=== PATIENT | female | born 1995 | race Caucasian/White ===

== ENCOUNTER 2022-01-16 12:37 | Outpatient (REF) | payer OTHER, SELFPAY ==
[2022-01-16 13:27] LABS: Hematocrit 35.8 % (37.0-47.0); Hemoglobin 11.1 g/dl (12.0-16.0); Mean Corpuscular Hemoglobin 24.1 pg (27.0-33.0); Mean Corpuscular Volume 77.8 fL (80.0-98.0); Mean Platelet Volume 10.4 fL (9.4-12.3); Platelet Count 316 X10*3/uL (160-400); Red Cell Distribution Width 15.5 % (11.0-16.0); White Blood Count 7.8 X10*3/uL (4.8-10.8)
[2022-01-16 13:34] LABS: Estimated Average Glucose 105 mg/dL; Hemoglobin A1c % 5.3 %
[2022-01-16 13:58] LABS: Appearance Urine CLEAR; Color Urine YELLOW; Glucose Urine UA NEG (NEG); Leukocyte Esterase Urine NEG (NEG); Nitrite Urine NEG (NEG); Specific Gravity - Urine >= 1.030 (1.005-1.025); UACC Culture Trigger NO; Urine Blood 2+ (NEG); Urine Ketones NEG (NEG); Urine Protein NEG (NEG-TRACE)
[2022-01-16 14:14] LABS: TSH reflex Free T4 1.54 uIU/mL (0.32-4.0)
[2022-01-16 14:24] LABS: Squamous Epithelial Cell Urine TRACE /LPF; WBC Urine 0 /HPF (0-4)
[2022-01-16 14:51] LABS: Alanine Aminotransferase 17 U/L (0-31); Albumin Level 3.8 g/dL (3.5-5.0); Alkaline Phosphatase 66 U/L (39-117); Anion Gap 11 (12-20); Aspartate Amino Transferase 17 U/L (5-31); Bilirubin Total 0.5 mg/dL (0.0-1.0); Blood Urea Nitrogen 11 mg/dL (9-16); Calcium 9.2 mg/dL (8.4-10.2); Carbon Dioxide 26 mmol/L (22-29); Chloride 107 mmol/L (96-108); Cholesterol 204 mg/dL; Estimated Glomerular Filt Rate > 60; Glucose Fasting 85 mg/dL (60-99); HDL Cholesterol 40 mg/dL; LDL Cholesterol Calculated 144 mg/dl; Potassium 4.7 mmol/L (3.3-5.1); Sodium 139 mmol/L (135-145); Triglycerides 101 mg/dL
== END 2022-01-16 12:38 | disposition home or self-care (01) ==
LOC: HO.LAB 12:37
PROVIDERS: PCP Physician Assistant; Visit Provider Physician Assistant
DX: Z13.220 Encounter for screening for lipoid disorders (principal); Z13.1 Encounter for screening for diabetes mellitus; E66.01 Morbid (severe) obesity due to excess calories; Z68.41 Body mass index [BMI] 40.0-44.9, adult
CPT/HCPCS: 36415; 80053; 80061; 81001; 81003; 83036; 84443; 85027

== ENCOUNTER 2022-10-24 08:57 | Outpatient (RCR) | payer OTHER, BC, SELFPAY ==
--- NOTE | 2022-10-24 09:59 | MHC.PT.EP ---
[facility] [place] Office [place] Office [place] Office [address] Nita Cano [address] [phone] F: [phone] F: [phone] F: [phone] F: [phone] Physical Therapy Plan of Care Date of Evaluation: Date of Surgery: Diagnosis: strain of muscle and tendon of back wall of thorax (RC) Assessment: pt is a 26 y/o female presenting to physical therapy w/ referring diagnosis of S29.012A strain of muscle and tendon of back wall of thorax. Impairments include pain, decreased range of motion, decreased strength, impaired functional mobility, impaired postural awareness, and altered ambulation mechanics. pt is a good candidate for skilled PT due to age, potential remediation of impairments, typical disease/condition progression and prognosis, comorbidities, and motivation. pt would benefit from skilled PT intervention to provide a tailored strengthening and stretching exercise program, functional training, gait training, postural re-training, neuromuscular re-education, modalities as needed for pain, equipment safety demonstration. Frequency and Duration: The patient will be seen 2x/wk for 4 wks Short Term Goals: pt will be I w/ HEP to promote self-management of condition. pt will demo proper sitting posture w/ lumbar roll to promote neutral spine w/ seated ADLs. Loan Funder Goals: pt will report a statistically significant improvement in self-reported outcome measure, Celine, to promote return to PLOF. pt will improve lumbar flexion and extension to at least 90% to promote ease in lifting at work. Treatment Plan: Modalities to reduce pain, spasms and effusion. Manual therapy to restore motion and function. Therapeutic exercise to improve strength and flexibility. Neuromuscular re-education for posture and balance. Therapeutic activities to return to functional activities of daily living. Electronically signed by: Zully Coombs PT, DPT Please sign and return to therapist. Thank you for your referral.
--- NOTE | 2022-11-14 09:25 | MHC.PT.DC ---
[facility] [place] Office [place] Office [place] Office [address] Nita Cano 140 [facility] [phone] F: [phone] F: [phone] F: [phone] F: [phone] Physical Therapy Discharge Report Diagnosis: strain of muscle and tendon of back wall of thorax (RC) Date of Surgery: Date of Evaluation: 10/24/22 Date of Discharge: 11/14/22 Treatments to Date: 1 Cancellations to Date: 1 No Shows to Date: 2 Discharge Status: Discharge Summary: The patient was evaluated and then has no showed two consecutive appointments. Per [facility] Core Therapy policy she is being discharged for non-compliance. Electronically signed by: Zully Coombs PT, DPT Please sign and return to therapist. Thank you for your referral.
== END 2022-11-14 09:26 | disposition home or self-care (01) ==
LOC: HO.PT 08:57
PROVIDERS: PCP Physician Assistant; Visit Provider Nurse Practitioner Family
DX: S29.012D Strain of muscle and tendon of back wall of thorax, subsequent encounter (principal)
CPT/HCPCS: 97110; 97161

== ENCOUNTER 2023-01-09 13:19 | Outpatient (REF) | payer BC, SELFPAY ==
--- NOTE | ~2023-01-09 | MR_ITS ---
EXAMINATION: MR ABDOMEN WITHOUT AND WITH CONTRAST CLINICAL INFORMATION: Further evaluation of splenic abnormality noted within an outside CT from 09/10/2022. COMPARISON: CT abdomen/pelvis outside facility 09/10/2022. TECHNIQUE: MR abdomen was performed without and with use of 10 mL intravenous Gadavist gadolinium contrast. Postcontrast images are performed in multiphase dynamic sequences. Imaging was performed in 3 planes. FINDINGS: LUNG BASES: The visualized lung bases are unremarkable. LIVER, GALLBLADDER, AND BILIARY TREE: There is signal loss in the out of phase dual-echo images most suggestive of hepatic steatosis. Otherwise, the liver is normal in size and shape. No discrete focal liver lesion. Normal appearance of the gallbladder. No biliary ductal dilatation. PANCREAS: Unremarkable. SPLEEN: The spleen measures 11.5 cm craniocaudally and 10.6 cm anterior to posterior. Subtle heterogeneous attenuation of the splenic parenchyma on T2 images as well as early postcontrast images, less prominent and much more subtle than when compared to CT from 09/10/2022, becoming homogeneous on later phases of contrast. ADRENAL GLANDS: Normal. KIDNEYS AND URETERS: The kidneys are normal in size, shape, and enhance symmetrically. No hydronephrosis. No perinephric stranding. GASTROINTESTINAL TRACT: No bowel obstruction. No ascites or fluid collection. ABDOMINAL WALL: No significant hernia is appreciated. LYMPH NODES: No lymphadenopathy. VASCULAR: Unremarkable. OSSEOUS STRUCTURES: No acute or aggressive-appearing osseous abnormalities. MR/MR abdomen wo/w con IMPRESSION: Subtle heterogeneity of the splenic parenchyma on precontrast T2 images as well as arterial postcontrast images, becoming homogeneous on later phases of contrast. No discrete abnormality on T1 precontrast images. Compared to CT from 09/10/2022 these changes are less prominent and much less conspicuous. Constellation of findings are in favor to represent physiologic perfusional abnormalities, combination of red/white pulp attenuation. These could be safely follow-up in 6-12 months to ensure stability/resolution.
== END 2023-01-09 13:20 | disposition home or self-care (01) ==
LOC: HO.MRI 13:19
PROVIDERS: PCP Physician Assistant; Visit Provider Physician Assistant
DX: D73.89 Other diseases of spleen (principal)
CPT/HCPCS: 74183; A9585

== ENCOUNTER 2023-04-10 07:58 | Outpatient (AMB) | payer BC, SELFPAY ==
[2023-04-10 08:07] VITALS: BP 130/88; PULSE 70; O2SAT 98; BMI 42.1
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
== END 2023-04-10 08:54 | disposition home or self-care (01) ==
PROVIDERS: Visit Provider Psychiatry & Neurology Neurology
DX: H54.3 Unqualified visual loss, both eyes (principal); R06.83 Snoring; G47.10 Hypersomnia, unspecified; F41.9 Anxiety disorder, unspecified
CPT/HCPCS: 99204

== ENCOUNTER → 2023-04-10 07:58 | Outpatient (BNVA) | payer BC, OTHER, SELFPAY | PROVIDERS: Visit Provider Psychiatry & Neurology Neurology ==

== ENCOUNTER 2023-05-06 09:40 | Outpatient (AMB) | payer BC, SELFPAY ==
[2023-05-06 09:48] VITALS: BP 124/86; PULSE 75; O2SAT 95; BMI 42.1
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
== END 2023-05-06 10:22 | disposition home or self-care (01) ==
PROVIDERS: PCP Physician Assistant; Visit Provider Physician Assistant
DX: Z00.00 Encounter for general adult medical examination without abnormal findings (principal); H53.143 Visual discomfort, bilateral; E66.01 Morbid (severe) obesity due to excess calories; Z68.41 Body mass index [BMI] 40.0-44.9, adult; Z12.4 Encounter for screening for malignant neoplasm of cervix
CPT/HCPCS: 99395

== ENCOUNTER 2023-05-09 15:53 | Outpatient (REF) | payer BC, SELFPAY ==
--- NOTE | ~2023-05-09 | MR_ITS ---
EXAMINATION: MR BRAIN WITHOUT CONTRAST CLINICAL INFORMATION: Vision loss COMPARISON: None TECHNIQUE: Multiplanar multisequence MR imaging of the brain was obtained without intravenous contrast. FINDINGS: There is no acute infarct on diffusion-weighted imaging. There is no intracranial hemorrhage on iron-sensitive imaging. No extra-axial collection or mass effect/herniation. Normal parenchymal signal characteristics. No hydrocephalus. The ventricles are normal in morphology and size. The major flow voids at the skull base are preserved. The midline structures are normal. The cerebellar tonsils are normally positioned. The craniocervical junction is normal. Marrow signal is within normal limits. The visualized soft tissues are without significant abnormality. No signal abnormality within the paranasal sinuses or within the mastoid air cells. Small T1 hyperintense likely proteinaceous fluid in the right petrous apex. MR/MR head/brain wo con IMPRESSION: Unremarkable noncontrast MRI of the brain.
== END 2023-05-09 15:54 | disposition home or self-care (01) ==
LOC: HO.MRI 15:53
PROVIDERS: PCP Physician Assistant; Visit Provider Psychiatry & Neurology Neurology
DX: H54.3 Unqualified visual loss, both eyes (principal)
CPT/HCPCS: 70551

== ENCOUNTER → 2023-05-29 20:30 | Outpatient (REF) | payer BC, SELFPAY | LOC: HO.SL 20:30 | PROVIDERS: PCP Physician Assistant; Visit Provider Psychiatry & Neurology Neurology | DX: G47.10 Hypersomnia, unspecified (principal); G47.33 Obstructive sleep apnea (adult) (pediatric); R06.83 Snoring; E66.01 Morbid (severe) obesity due to excess calories; Z68.41 Body mass index [BMI] 40.0-44.9, adult | CPT/HCPCS: 95810 ==

== ENCOUNTER → 2023-05-29 22:46 | Outpatient (BNV) | payer BC, SELFPAY | PROVIDERS: PCP Physician Assistant; Visit Provider Psychiatry & Neurology Neurology | DX: G47.33 Obstructive sleep apnea (adult) (pediatric) (principal) | CPT/HCPCS: 95810 ==

== ENCOUNTER → 2023-06-12 07:54 | Outpatient (BNVA) | payer BC, OTHER, SELFPAY | PROVIDERS: PCP Physician Assistant; Visit Provider Psychiatry & Neurology Neurology | DX: H54.3 Unqualified visual loss, both eyes (principal); R06.83 Snoring; G47.10 Hypersomnia, unspecified ==

== ENCOUNTER 2024-05-10 09:02 | Outpatient (AMB) | payer BC, MEDICAID, SELFPAY ==
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
[2024-05-10 09:10] VITALS: BP 126/86; PULSE 85; O2SAT 97; BMI 41.2
== END 2024-05-10 09:41 | disposition home or self-care (01) ==
PROVIDERS: PCP Physician Assistant; Visit Provider Physician Assistant
DX: Z00.00 Encounter for general adult medical examination without abnormal findings (principal); H53.143 Visual discomfort, bilateral; F33.0 Major depressive disorder, recurrent, mild; Z13.1 Encounter for screening for diabetes mellitus; R10.2 Pelvic and perineal pain; M54.50 Low back pain, unspecified; G89.29 Other chronic pain; F41.1 Generalized anxiety disorder

== ENCOUNTER → 2024-05-10 09:02 | Outpatient (BNVA) | payer BC, MEDICAID, SELFPAY | PROVIDERS: PCP Physician Assistant; Visit Provider Physician Assistant | DX: Z00.01 Encounter for general adult medical examination with abnormal findings (principal); H53.143 Visual discomfort, bilateral; R10.2 Pelvic and perineal pain; G89.29 Other chronic pain; M54.50 Low back pain, unspecified; F33.0 Major depressive disorder, recurrent, mild; F41.1 Generalized anxiety disorder | CPT/HCPCS: 96127 ==

== ENCOUNTER 2025-05-16 15:32 | Outpatient (AMB) | payer BC, MEDICAID, SELFPAY ==
[2025-05-16 16:39] VITALS: BP 124/82; PULSE 73; RESP 18; TEMP 36.3; O2SAT 97; BMI 42.9
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
--- OUTSIDE RECORDS SUMMARY | 2025-05-16 17:36 | XMS_ITS | Patient Health Record ---
Author Organization [facility] [place] Address [address] [place], [place] [id number] Support Name Relationship Address Phone NOLVIA POTTER Guarantor Unknown [phone] Allergies No Known Allergies Reason For Referral No Information Problems Problem Type SNOMED Code ICD Code Onset Dates Problem Status W/U Status Risk Notes Problem Obesity (489460344 ) Obesity, unspecified (E66.9) 08/21/19 18 Active confirmed Type: Diagnosis; Confidentiality Level: 1; Problem Body mass index 30.00 to 34.99 ([id number]) Body mass index (BMI) 34.0-34.9, adult (Z68.34) 08/21/19 18 Active confirmed Type: Diagnosis; Confidentiality Level: 1; Plan Of Treatment No Information Insurance Providers Payer Name Payer Address Payer Phone Subscriber Number Group Number Insured Name Patient Relationship to Insured Coverage Start Date Coverage End Date NO USAR FMS [address] [place] [address] [id number] NOLVIA POTTER Self - patient is the insured
== END 2025-05-16 17:21 | disposition home or self-care (01) ==
LOC: HO.HMCH 15:33
PROVIDERS: PCP Physician Assistant; Visit Provider Physician Assistant
DX: Z00.00 Encounter for general adult medical examination without abnormal findings (principal); E66.813 Obesity, class 3; Z68.41 Body mass index [BMI] 40.0-44.9, adult; F41.9 Anxiety disorder, unspecified; F33.0 Major depressive disorder, recurrent, mild; M62.838 Other muscle spasm; M54.6 Pain in thoracic spine; R10.9 Unspecified abdominal pain

== ENCOUNTER → 2025-05-16 15:32 | Outpatient (BNVA) | payer BC, MEDICAID, SELFPAY | PROVIDERS: PCP Physician Assistant; Visit Provider Physician Assistant | DX: Z00.00 Encounter for general adult medical examination without abnormal findings (principal); R10.9 Unspecified abdominal pain; H53.149 Visual discomfort, unspecified; E66.813 Obesity, class 3; F33.0 Major depressive disorder, recurrent, mild; M62.838 Other muscle spasm; M54.6 Pain in thoracic spine; D50.9 Iron deficiency anemia, unspecified; F41.1 Generalized anxiety disorder | CPT/HCPCS: 96127 ==

== ENCOUNTER 2025-05-17 09:00 | Outpatient (REF) | payer BC, SELFPAY ==
--- OUTSIDE RECORDS SUMMARY | 2025-05-15 14:49 | XMS_ITS | Encounter Summary ---
Author Organization [facility] Address [address] [place] [address] Care Team Providers Care Business Operations Consultant Name Role Phone Keith Pa Primary Care Provider [phone] Reason for Visit * Reason Comments Flank Pain Encounter Details Date Type Department Care Team (Late st Contact Info) Description 05/15/2025 2:49 PM EDT - 05/15/2025 6:[address] [facility] Emergency [address] [place] [id number] Sherry Mendez MD [address] [place] [address] Muscle spasm (Primary Dx) Discharge Disposition: Home or Self Care Social History Tobacco Use Types Packs/Day Years Used Date Smoking Tobacco: Never Assessed Comments Unknown Sex and Gender Information Value Date Recorded Sex Assigned at Not on file Legal Sex Female 2:10 PM EDT Gender Identity Not on file Sexual Orientation Not on file documented as of this encounter Last Filed Vital Signs Vital Sign Reading Time Taken Comments Blood Pressure 131/85 05/15/2025 2:13 PM EDT Pulse 101 05/15/2025 2:13 PM EDT Temperature 37.1 C (98.8 F) 05/15/2025 2:13 PM EDT Respiratory Rate 20 05/15/2025 2:13 PM EDT Oxygen Saturation 99% 05/15/2025 2:13 PM EDT Inhaled Oxygen Concentration - - Weight 113 kg (250 lb 3.2 oz) 05/15/2025 2:13 PM EDT Height 162.6 cm (5' 4 ) 05/15/2025 2:13 PM EDT Body Mass Index 42.95 05/15/2025 2:13 PM EDT documented in this encounter Functional Status * Calculated C-SSRS Risk Score (Lifetime/Recent) Answer Date of Assessment Author No Risk Indicated 05/15/2025 2:16 PM EDT Mary Galo, MATT * [place] Suicide Severity Rating Scale (Screener/Recent Self-Report) Question Answer Date of Assessment Author 1. Wish to be (Past 1 Month) No 05/15/2025 2:16 PM EDT Stella Grant RN 2. Non-Specific Active Suici varsha Thoughts (Past 1 Month) No 05/15/2025 2:16 PM EDT Lauryn Grant RN 6. Suicidal Behavior (Lifetime) No 2:16 PM EDT Mary Grant, MATT documented as of this encounter Discharge Instructions * Discharge Instructions* Sherry Mendez MD - 05/15/2025 4:47 PM EDT Lo atendieron en urgencias por un dolor repentino en el lado mario de la espalda mientras lavaba los platos. Le realizaron un examen y an??lisis de laboratorio. Estos no mostraron nada preocupante que requiriera coffey ingreso hospitalario hoy. Recibi?? tratamiento con analg??sicos y espasmos musculares y se sinti?? mucho mejor. Mateo ya se mencion??, se recomienda alternar entre Tylenol y Motrin cada 4 horas. Puede jose hasta 1000 mg de Tylenol a la vez y no m??s de 4000 mg en 24 horas. Puede jose hasta 800 mg de Motrin a la vez. Tambi??n le recetaron Robaxin, un relajante muscular, y parches de lidoca??na. Mateo ya se mencion??, Robaxin puede causarle somnolencia, por lo que no puede tomarlo si va a conducir o hacer algo que requiera que est?? muy alerta. [place] ya se mencion??, el objetivo del analg??sico es que el dolor sea lo suficientemente tolerable mateo para que pueda comenzar a estirarse. Se recomienda estirar la espalda, el abhijit, los brazos y las piernas al menos de 15 a 20 minutos seguidos dos veces al d??a. Evite tambi??n estar sentado o de pie por tiempo prolongado, mant??ngase activo y camine con regularidad. Por favor, acuda a coffey dimas con coffey m??dico de cabecera ma??lavern. Si presenta s??ntomas nuevos o que empeoren, acuda a urgencias. You were seen in the emergency department for sudden pain in the left side of your back while doingdishes. You had an exam, lab work. This did not show anything worrisome that would require you to be admitted to the hospital today. You were treated with medicine for pain and muscle spasms and feltmuch better. As discussed, it is recommended that you alternate between Tylenol and Motrin every 4 hours. You can have up to 1000 mg of Tylenol at a time and no more than 4000 mg in 24 hours. You canhave up to 800 mg of Motrin at a time. You are also prescribed Robaxin, a muscle relaxer, and lidocaine patches. As discussed, Robaxin can make you sleepy so you cannot take this if you are going to be driving or doing anything that requires you to be very alert. As discussed, the goal of the pain medication is to make the pain tolerable enough so that you can start stretching, it is recommended that you stretch your back, neck, arms and legs at least 15 to 20 minutes at a time twice per day. Also avoid prolonged sitting or standing, stay active, go for regular walks. Please keep your appointment with your primary care physician tomorrow. Please return to the emergency department any new orworsening symptoms. * Attachments The following attachments cannot be sent through Care Everywhere. * Cramp: Muscle (Romanian) * Back Spasm (Romanian) * Back: Stretches: Exercises (Romanian) documented in this encounter Medications at Time of Discharge lidocaine (LIDODERM) 5 % patchIndications :Muscle spasm Apply 1 patch topically 1 (one) time each day. Remove & discard patch within 12 hours or as directed by . 30 each 05/15/2025 methocarbamoL (ROBAXIN) 500 mg tablet Take 2 tablets (1,000 mg total) by mouth 2 (two) times a day if needed for muscle spasms for up to 10 days. 20 tablet 05/15/2025 5 documented as of this encounter Ordered Prescriptions Prescription Sig Dispense Quantity Refills Last Filled Start Date End Date lidocaine (LIDODERM) 5 % patchIndications:M uscle spasm Apply 1 patch topically 1 (one) time each day. Remove & discard patch within 12 hours or as directed by . 30 each 05/15/2025 methocarbamoL (ROBAXIN) 500 mg tablet Take 2 tablets (1,000 mg total) by mouth 2 (two) times a day if needed for muscle spasms for up to 10 days. 20 tablet 05/15/2025 5 documented in this encounter Discharge Disposition Disposition Code Departure Means Destination Comment s Home or Self Care documented in this encounter Progress Notes * Mary Grant RN - 05/15/2025 2:12 PM EDT Pt coming in for left sided rib pain that started today while she was washing the dishes, denies fall or injury * Sherry Mendez MD - 05/15/2025 2:10 PM EDT Images from the original note were not included. HPI Chief Complaint Patient presents with Flank Pain Patient without history in this system presents reporting sudden pain in the left side of her back near her side that started when she was washing dishes around 1 p.m., she states that she did not twist, move abnormally, did not fall, did not have any trauma to the area. Patient describes it as a severe squeezing and pulsating sensation, worse with deep breaths or any movement, nothing seems to make it better. Patient states that she has not tried medications for this yet. She states that she has not had any recent increased exercise, heavy lifting, new activity. Patient denies any cold or flu symptoms, cough, chest pain, belly pain, nausea, vomiting, urinary symptoms. She states that she is currently menstruating. Patient states that she has a history of constipation, does not take any medication for this, she had a normal bowel movement yesterday, has not had to strain with her bowel movements recently. 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 Constitutional: General: She is not in acute distress. Appearance: Normal appearance. She is not ill-appearing. HENT: Mouth/Throat: Mouth: Mucous membranes are moist. Cardiovascular: Rate and Rhythm: Normal rate and regular rhythm. Heart sounds: Normal heart sounds. Pulmonary: Effort: Pulmonary effort is normal. Breath sounds: Normal breath sounds. Abdominal: Palpations: Abdomen is soft. Tenderness: There is no abdominal tenderness. There is no right CVA tenderness or left CVA tenderness. Musculoskeletal: Back: Neurological: Mental Status: She is alert. ED Course & MDM Medical Decision Making Ddx: Muscle spasm, dyspepsia, less likely ureterolithiasis, muscle strain, sprain, PE, unlikely trauma, pneumonia Patient is uncomfortable but otherwise well-appearing with vitals mild tachycardia to 101 and otherwise WNL on RA on arrival and normal cardiopulmonary and abdominal exams, tenderness to left lateralthoracic muscles, no CVAT, severe pain with any movement of torso including deep breathing. Will obtain d-dimer. Patient is pending CBC, CMP, UA ordered from triage. Will treat with multimodal analgesia. Did consider CXR for pneumonia however this is unlikely given sudden onset of pain, no respiratory symptoms as well as for trauma however patient denies this. Discussed plan, if blood in UA will obtain CT to eval for stones. Amount and/or Complexity of Data Reviewed Labs: ordered. Decision-making details documented in ED Course. Risk OTC drugs. Prescription drug management. ED Course as of 05/16/25 2318 Sun May 15, 2025 1638 D-Dimer (Quantitative) Negative [RG] 1638 Urinalysis with reflex microscopic and culture No blood or infection [RG] 1638 Comprehensive metabolic panel WNL [RG] 1638 CBC and differential(!) No leukocytosis, mild anemia to 10.5 [RG] 1643 Patient updated and re-evaluated, she looks much better, she is laughing with her sister, she is able to stand up and walk around. Discussed home care with alternating Tylenol and Motrin, max doses of each, will prescribe Robaxin lidocaine patches, caution with Robaxin, importance of being active, stretching, going for walks, trying to avoid prolonged sitting, standing. All questions answered and concerns addressed. She states she already has follow-up with her PCP scheduled for tomorrow. Patient was discharged with home care instructions, outpatient follow-up plan, prescriptions for Robaxin and lidocaine patches, and return precautions. [RG] ED Course User Index [RG] Sherry Mendez MD Clinical Impressions as of 05/16/25 2318 Muscle spasm Procedures Sherry Mendez MD 05/15/25 1530 [1] History reviewed. No pertinent past medical history. [2] History reviewed. No pertinent surgical history. [3] No family history on file. Sherry Mendez MD 05/16/25 2322 documented in this encounter Plan of Treatment Not on file documented as of this encounter Procedures Procedure Name Priority Date/Time Associated Diagnosis Comments D-DIMER STAT 05/15/2025 3:46 PM EDT URINALYSIS WITH REFLEX MICROSCOPIC AND CULTURE STAT 05/15/2025 2:53 PM EDT MICHELLE URINE CULTURE TUBE STAT 05/15/2025 2:53 PM EDT URINALYSIS WITH REFLEX MICROSCOPIC AND CULTURE STAT 05/15/2025 2:53 PM EDT CBC WITH AUTO DIFFERENTIAL STAT 05/15/2025 2:47 PM EDT CBC AND DIFFERENTIAL STAT 05/15/2025 2:47 PM EDT COMPREHENSIVE METABOLIC PANEL STAT 05/15/2025 2:47 PM EDT documented in this encounter Results * D-Dimer (Quantitative) (05/15/2025 3:46 PM EDT) Pathologist [facility] D-Dimer, Quant (D-DU) 193 <=230 ng/mL DDU LAB COAGULATION METHOD 05/15/2025 4:26 PM EDT [facility] Blood Venous blood specimen / Unknown Venipuncture / Unknown 05/15/2025 3:46 PM EDT 05/15/2025 4:04 PM EDT Narrative [facility] - 05/15/2025 4:26 PM EDT D-Dimer <230 ng/mL (D-Dimer units) is the threshold for exclusion of DVT/PE. D-Dimer may be elevated in: Critically ill, severely infected, trauma patients, DIC, acute CVA, acute VT, unstable angina, AF, old age, , and smoking. D-Dimer may be decreased with: Initiation of heparin therapy and oral anticoagulants. us Sherry Mendez MD LAB BLOOD ORDERABLES Final Resul t [facility] [address] [place] [address], [place] [phone] * Michelle urine culture tube (05/15/2025 2:53 PM EDT) Pathologist [facility] Extra Tube Hold for add-ons. 05/15/2025 5:01 PM EDT [facility] Comment:Auto resulted. Urine Urine specimen obtained by clean catch procedure / Unknown Non-blood Collection / Unknown 05/15/2025 2:53 PM EDT 05/15/2025 3:04 PM EDT us Stefanie CHAPMAN LAB URINE ORDERABLES Final Re sult [facility] [address] [place] [address], [place] [phone] * Urinalysis with reflex microscopic and culture (05/15/2025 2:53 PM EDT) Specific [place] Urine 1.023 1.003 - 1.030 LAB URINALYSIS - AUTOMATED METHOD 05/15/2025 3:13 PM EDT [facility] pH, Urine 7.0 5.0 - 8.0 pH LAB URINALYSIS - AUTOMATED METHOD 05/15/2025 3:13 PM [facility] Leukocytes, Urine Negative Negative LAB URINALYSIS - AUTOMATED METHOD 05/15/2025 3:13 PM T [facility] Nitrite, Urine Negative Negative LAB URINALYSIS - AUTOMATED METHOD 05/15/2025 3:13 PM T [facility] Protein, Urine Negative <=Trace mg/dL LAB URINALYSIS - AUTOMATED METHOD 05/15/2025 3:13 PM [facility] Glucose, Urine Negative Negative mg/dL LAB URINALYSIS - AUTOMATED METHOD 05/15/2025 3:13 PM T [facility] Ketones, Urine Negative Negative mg/dL LAB URINALYSIS - AUTOMATED METHOD 05/15/2025 3:13 PM [facility] Urobilinogen, Urine 1.0 0.2 - 1.0 mg/dL LAB URINALYSIS - AUTOMATED METHOD 05/15/2025 3:13 PM [facility] Bilirubin, Urine Negative Negative LAB URINALYSIS - AUTOMATED METHOD 05/15/2025 3:13 PM T [facility] Blood, Urine Negative Negative LAB URINALYSIS - AUTOMATED METHOD 05/15/2025 3:13 PM EDT [facility] Urine Urine specimen obtained by clean catch procedure / Unknown Non-blood Collection / Unknown 05/15/2025 2:53 PM EDT 05/15/2025 3:04 PM EDT Stefanie CHAPMAN LAB URINE ORDERABLES Final Re sult [facility] [address] [place] [address], [place] [phone] * (ABNORMAL) CBC auto differential (05/15/2025 2:47 PM EDT) WBC 6.5 4.8 - 10.8 K/mcL LAB HEMETOLOGY METHOD 05/15/2025 3:12 PM EDT [facility] RBC 4.90(H) 3.80 - 4.80 M/mcL LAB HEMETOLOGY METHOD 05/15/2025 3:12 PM EDT [facility] Hemoglobin 10.5(L) 11.5 - 16.0 g/dL LAB HEMETOLOGY METHOD 05/15/2025 3:12 PM EDT [facility] Hematocrit 35.7 35.0 - 47.0 % LAB HEMETOLOGY METHOD 05/15/2025 3:12 PM EDT [facility] MCV 72.9(L) 79.0 - 98.0 FL LAB HEMETOLOGY METHOD 05/15/2025 3:12 PM EDT [facility] MCH 21.4(L) 27.0 - 32.0 pcg LAB HEMETOLOGY METHOD 05/15/2025 3:12 PM EDT [facility] MCHC 29.4(L) 32.0 - 37.0 g/dL LAB HEMETOLOGY METHOD 05/15/2025 3:12 PM EDT [facility] RDW 18.6(H) 11.0 - 15.0 % LAB HEMETOLOGY METHOD 05/15/2025 3:12 PM EDT [facility] Platelets 431(H) 130 - 400 K/mcL LAB [facility]OLOGY [facility] MPV 10.6 7.0 - 11.0 FL LAB HEMETOLOGY METHOD 05/15/2025 3:12 PM EDT [facility] NRBC 0.0 <1.0 % LAB HEMETOLOGY METHOD [facility]/15[facility]2025 [facility] NRBC Absolute 0.00 <0.10 K/mcL LAB HEMETOLOGY METHOD 05/15/2025 3:[facility] Neutrophils Relative 63.3 % LAB HEMETOLOGY METHOD 05/15/2025 3:[facility] Lymphocytes Relative 24.2 % LAB HEMETOLOGY METHOD 05/15[facility]2025 3:[facility] Monocytes Relative 10.9 % LAB HEMETOLOGY METHOD 05/15/2025 3:12 PM [facility] Eosinophils Relative 1.1 % LAB HEMETOLOGY METHOD 05/15[facility]2025 [facility] Basophils Relative 0.2 % LAB HEMETOLOGY METHOD 05/15/2025 3:12 PM EDT [facility] Immature Granulocytes Relative 0.3 % LAB HEMETOLOGY METHOD 05/15[facility]2025 3:[facility] Neutrophils Absolute 4.09 1.50 - 7.00 K/mcL LAB HEMETOLOGY METHOD 05/15/2025 3:[facility] Lymphocytes Absolute 1.56 1.00 - 5.00 K/mcL LAB HEMETOLOGY METHOD 05/15/2025 3:12 PM EDT [facility] Monocytes Absolute 0.70 0.20 - 1.00 K/mcL LAB HEMETOLOGY METHOD 05/15/2025 3:12 PM EDT [facility] Eosinophils Absolute 0.07 0.00 - 0.50 K/mcL LAB HEMETOLOGY METHOD 05/15/2025 3:12 PM EDT [facility] Basophils Absolute 0.01 0.00 - 0.20 K/mcL LAB HEMETOLOGY METHOD 05/15/2025 3:12 PM EDT [facility] Immature Granulocytes Absolute 0.02 0.00 - 0.03 K/mcL LAB HEMETOLOGY METHOD 05/15/2025 3:12 PM EDT [facility] Blood Venous blood specimen / Unknown Venipuncture / Unknown 05/15/2025 2:47 PM EDT 05/15/2025 3:04 PM EDT Stefanie CHAPMAN LAB BLOOD ORDERABLES Final Re sult [facility] [address] [place] [address], * Comprehensive metabolic panel (05/15/2025 2:47 PM EDT) Sodium 137 133 - 145 mmol/L LAB CHEMISTRY METHOD 05/15/2025 3:33 PM EDT [facility] Potassium 5.0 3.5 - 5.5 mmol/L LAB CHEMISTRY METHOD 05/15/2025 3:33 PM [facility] Chloride 107 96 - 110 mmol/L LAB CHEMISTRY METHOD 05/15[facility]2025 3:[facility] CO2 27 21 - 32 mmol/L LAB CHEMISTRY METHOD 05/15/2025 3:33 PM T [facility] Anion Gap 3 3 - 11 LAB CHEMISTRY METHOD 05/15/2025 3:33 PM EDT [facility] Glucose 90 70 - 100 mg/dL LAB CHEMISTRY METHOD 05/15/2025 3:33 PM [facility] BUN 14 5 - 25 mg/dL LAB CHEMISTRY METHOD 05/15/2025 3:33 PM [facility] Creatinine 0.68 0.50 - 1.10 mg/dL LAB CHEMISTRY METHOD 05/15/2025 3:33 PM [facility] eGFR 121 >=60 mL/min/1. 73m2 LAB CHEMISTRY METHOD 05/15/2025 3:33 PM [facility] Comment:Calculation based on the Chronic Kidney Disease Epidemiology Collaboration (CKD-EPI) equation refit without adjustment for race. BUN/Creatinine Ratio 20.6 LAB CHEMISTRY METHOD 05/15/2025 3:33 PM [facility] Calcium 9.0 8.5 - 10.5 mg/dL LAB CHEMISTRY METHOD 05/15/2025 3:33 PM [facility] AST (SGOT) 18 10 - 42 unit/L LAB CHEMISTRY METHOD 05/15/2025 3:33 PM [facility] ALT (SGPT) 26 10 - 60 unit/L LAB CHEMISTRY METHOD 05/15/2025 3:33 PM [facility] Alkaline Phosphatase 76 42 - 121 unit/L LAB CHEMISTRY METHOD 05/15/2025 3:33 PM [facility] Total Protein 7.1 6.0 - 8.0 g/dL LAB CHEMISTRY METHOD 05/15/2025 3:33 PM [facility] Albumin 3.4 3.2 - 5.0 g/dL LAB CHEMISTRY METHOD 05/15/2025 3:33 PM [facility] Total Bilirubin 0.2 0.0 - 1.4 mg/dL LAB CHEMISTRY METHOD 05/15/2025 3:33 PM [facility] Blood Venous blood specimen / Unknown Venipuncture / Unknown 05/15/2025 2:47 PM EDT 05/15/2025 3:04 PM EDT Stefanie CHAPMAN LAB BLOOD ORDERABLES Final Re sult [facility] [address] [place] [address], documented in this encounter Visit Diagnoses Diagnosis Muscle spasm- Primary Spasm of muscle documented in this encounter Administered Medications Inactive Administered Medications - up to 3 most recent administrations Medication Order MAR Action Action Date Dose Rate Site acetaminophen (TYLENOL) tablet 1,000 mg 1,000 mg, oral, Once, On 05/15/25 at 1515, For 1 dose Given 05/15/2025 3:22 PM EDT 1,000 mg ketorolac (TORADOL) injection 15 mg 15 mg, intramuscular, Once, On 05/15/25 at 1515, For 1 dose Given 05/15/2025 3:24 PM EDT 15 mg Right Deltoid lidocaine 4 % patch 1 patch 1 patch, Topical, Administer over 12 Hours, Once, On 05/15/25 at 1515, For 1 dose, Apply to left side. Patch Applied 05/15/2025 3:24 PM EDT 1 patch Left Upper Outer Quadrant methocarbamoL (ROBAXIN) tablet 1,500 mg 1,500 mg, oral, Once, On 05/15/25 at 1515, For 1 dose Given 05/15/2025 3:22 PM EDT 1,500 mg documented in this encounter Active and Recently Administered Medications Times are shown in EDT. Scheduled Medication Order 05/13/2025 05/14/2025 05/15/2025 acetaminophen (TYLENOL) tablet 1,000 mg (COMPLETED) 1,000 mg, oral, Once, On 05/15/25 at 1515, For 1 dose 1522 (Given - Provid er: Emperatriz Whitmore RN) ketorolac (TORADOL) injection 15 mg (COMPLETED) 15 mg, intramuscular, Once, On 05/15/25 at 1515, For 1 dose 1524 (Given - Provid er: Emperatriz Whitmore RN) lidocaine 4 % patch 1 patch 1 patch, Topical, Administer over 12 Hours, Once, On 05/15/25 at 1515, For 1 dose, Apply to left side. 1524 (Patch Applied - Provider: Emperatriz Whitmore RN)1800 (Due: Patch Removed - Provider: Automatic Discharge Provider - Comment: Time automatically adjusted from order being discontinued) methocarbamoL (ROBAXIN) tablet 1,500 mg (COMPLETED) 1,500 mg, oral, Once, On 05/15/25 at 1515, For 1 dose 1522 (Given - Provid er: Emperatriz Whitmore RN) documented in this encounter Care Teams Business Operations Consultant Relationship Specialty Start Date End Date Keith Pa PA [address] [place] [id number] PCP - General Physician Wedding Planner 05/15/25 documented as of this encounter
--- NOTE | ~2025-05-17 | XR_ITS ---
EXAMINATION: XR THORACIC SPINE CLINICAL INFORMATION: M54.6 - Pain in thoracic spine COMPARISON: None available. TECHNIQUE: 3 views of the thoracic spine were obtained. FINDINGS: There is mild wedging of the lower thoracic vertebral body, probably T12 which appears mildly wedged along its anterior-inferior margin. Vertebral body height and alignment is preserved otherwise. There are small osteophytes along the anterior vertebral bodies in the mid to lower thoracic spine. However disc spaces are preserved. XR/XR thoracic spine 3V IMPRESSION: There is wedging of the anterior inferior endplate of a lower thoracic vertebral body, likely T12. This could be physiologic in nature, though mild age-indeterminate compression fracture is not ruled out. Electronically signed by: Elfego Marcum MD 05/17/2025 09:49 AM EDT
--- NOTE | ~2025-05-17 | XR_ITS ---
EXAMINATION: XR RIBS, LEFT CLINICAL INFORMATION: R10.9 - Unspecified abdominal pain COMPARISON: None available. TECHNIQUE: 3 views of the left ribs were obtained. FINDINGS: No fracture line, cortical step-off, or deformity is identified in the ribs. XR/XR ribs LT 2V IMPRESSION: Unremarkable examination. Electronically signed by: Elfego Marcum MD 05/17/2025 09:48 AM EDT
--- NOTE | ~2025-05-17 | XR_ITS ---
EXAMINATION: XR CHEST CLINICAL INFORMATION: R10.9 - Unspecified abdominal pain COMPARISON: None available. TECHNIQUE: 2 views of the chest were obtained. FINDINGS: No significant abnormality is noted involving the heart, lungs, mediastinum, bony thorax or soft tissues. XR/XR chest 2V IMPRESSION: No acute disease Electronically signed by: Elfego Marcum MD 05/17/2025 09:46 AM EDT RP
--- OUTSIDE RECORDS SUMMARY | 2025-05-17 09:40 | XMS_ITS | Patient Health Record ---
Author Organization [facility] [place] Address [address] [place], [place] [phone] Support Name Relationship Address Phone NOLVIA POTTER Guarantor Unknown Allergies No Known Allergies Reason For Referral No Information Problems Problem Type SNOMED Code ICD Code Onset Dates Problem Status W/U Status Risk Notes Problem Obesity (751502413 ) Obesity, unspecified (E66.9) 08/21/19 18 Active confirmed Type: Diagnosis; Confidentiality Level: 1; Problem Body mass index 30.00 to 34.99 ([id number]) Body mass index (BMI) 34.0-34.9, adult (Z68.34) 08/21/19 18 Active confirmed Type: Diagnosis; Confidentiality Level: 1; Plan Of Treatment No Information Insurance Providers Payer Name Payer Address Payer Phone Subscriber Number Group Number Insured Name Patient Relationship to Insured Coverage Start Date Coverage End Date NO USAR FMS [address] [place] [address] [id number] NOLVIA POTTER Self - patient is the insured
--- OUTSIDE RECORDS SUMMARY | 2025-05-17 09:40 | XMS_ITS | Clinical Summary ---
Author Organization [facility] Address [address] [place] [address] Phone Care Team Providers Care Silverware Supervisor Name Role Phone Keith Pa Primary Care Provider [phone] Allergies No known active allergies Medications methocarbamoL (ROBAXIN) 500 mg tablet Take 2 tablets (1,000 mg total) by mouth 2 (two) times a day if needed for muscle spasms for up to 10 days. 20 tablet 5 05/25/20 25 Active lidocaine (LIDODERM) 5 % patchIndication s:Muscle spasm Apply 1 patch topically 1 (one) time each day. Remove & discard patch within 12 hours or as directed by . 30 each 5 06/14/20 25 Active Encounters Date Type Department Care Team Description 05/15/2025 2:49 PM EDT - 05/15/2025 6:[address] [facility] Emergency [address] [place] [address] Sherry Mendez MD Muscle spasm (Primary Dx) Discharge Disposition: Home or Self Care from Last 3 Months Social History Tobacco Use Types Packs/Day Years Used Date Smoking Tobacco: Never Assessed Comments Unknown Sex and Gender Information Value Date Recorded Sex Assigned at Not on file Legal Sex Female 2:10 PM EDT Gender Identity Not on file Sexual Orientation Not on file Obstetrics History Last Filed Vital Signs Vital Sign Reading [...] Mass Index 42.95 05/15/2025 2:13 PM EDT Plan of Treatment Health Maintenance Due Date Last Done Comments DTaP,Tdap,and Td Vaccines (1 - Tdap) 12/10/2014 Hepatitis B Vaccines (1 of 3 - 19+ 3-dose series) 12/10/2014 Cervical Cancer Screening: P ap Smear 12/10/2016 HPV Vaccines (1 - 3-dose SCD M series) 12/10/2022 Depression Screening 08/18/2024 COVID-19 Vaccine (1 - 2023-2 5 season) 2025 Influenza Vaccine (#1) 2025 HIV Screening 05/15/2025 Hepatitis C Screening 05/15/2025 Social Influencers of Health Screening 05/15/2025 RSV Immunization Adult Patie nts (1 - 1-dose 75+ series) 12/10/2070 HIB Vaccines Aged Out No longer eligi ble based on patient's age to complete this topic Hepatitis A Vaccines Aged Out No long er eligible based on patient's age to complete this topic IPV Vaccines Aged Out No longer eligi ble based on patient's age to complete this topic MMR Vaccines Aged Out No longer eligi ble based on patient's age to complete this topic Meningococcal ACWY Vaccine Aged Out N o longer eligible based on patient's age to complete this topic Meningococcal B Vaccine Aged Out No l onger eligible based on patient's age to complete this topic Pneumococcal Vaccine: Pediat rics (0 to 5 Years) and At-Risk Patients (6 to 49 Years) Aged Out No longer eligible b ased on patient's age to complete this topic RSV Immunization Patients Un karina 20 months Aged Out No longer eligible b ased on patient's age to complete this topic Varicella Vaccines Aged Out No longer eligible based on patient's age to complete this topic Procedures Procedure Name Priority Date/Time Associated Diagnosis Comments D-DIMER STAT 05/15/2025 3:46 PM EDT MICHELLE URINE CULTURE TUBE STAT 05/15/2025 2:53 PM EDT URINALYSIS WITH REFLEX MICROSCOPIC AND CULTURE STAT 05/15/2025 2:53 PM EDT URINALYSIS WITH REFLEX MICROSCOPIC AND CULTURE STAT 05/15/2025 2:53 PM EDT CBC WITH AUTO DIFFERENTIAL STAT 05/15/2025 2:47 PM EDT COMPREHENSIVE METABOLIC PANEL STAT 05/15/2025 2:47 PM EDT CBC AND DIFFERENTIAL STAT 05/15/2025 2:47 PM EDT from Last 3 Months Results * D-Dimer (Quantitative) (05/15/2025 3:46 PM EDT) D-Dimer, Quant (D-DU) 193 <=230 ng/mL DDU LAB COAGULATION METHOD 05/15/2025 4:26 PM EDT [facility] Blood Venous blood specimen / Unknown Venipuncture / Unknown 05/15/2025 3:46 PM EDT 05/15/2025 4:04 PM EDT Narrative [facility] - 05/15/2025 4:26 PM EDT D-Dimer <230 ng/mL (D-Dimer units) is the threshold for exclusion of DVT/PE. D-Dimer may be elevated in: Critically ill, severely infected, trauma patients, DIC, acute CVA, acute TX, unstable angina, AF, old age, , and smoking. D-Dimer may be decreased with: Initiation of heparin therapy and oral anticoagulants. us Sherry Mendez MD LAB BLOOD ORDERABLES Final Resul t [facility] [address] [place] [address], [place] [phone] * Urinalysis with reflex microscopic and culture (05/15/2025 2:53 PM EDT) Specific [place] Urine 1.023 1.003 - 1.030 LAB URINALYSIS - AUTOMATED METHOD 05/15/2025 3:13 PM [facility] pH, Urine 7.0 5.0 - 8.0 pH LAB URINALYSIS - AUTOMATED METHOD 05/15/2025 3:13 PM [facility] Leukocytes, Urine Negative Negative LAB URINALYSIS - AUTOMATED METHOD 05/15/2025 3:13 PM [facility] Nitrite, Urine Negative Negative LAB URINALYSIS - AUTOMATED METHOD 05/15/2025 3:13 PM [facility] Protein, Urine Negative <=Trace mg/dL LAB URINALYSIS - AUTOMATED METHOD 05/15/2025 3:13 PM [facility] Glucose, Urine Negative Negative mg/dL LAB URINALYSIS - AUTOMATED METHOD 05/15/2025 3:13 PM [facility] Ketones, Urine Negative Negative mg/dL LAB URINALYSIS - AUTOMATED METHOD 05/15/2025 3:13 PM [facility] Urobilinogen, Urine 1.0 0.2 - 1.0 mg/dL LAB URINALYSIS - AUTOMATED METHOD 05/15/2025 3:13 PM [facility] Bilirubin, Urine Negative Negative LAB URINALYSIS - AUTOMATED METHOD 05/15/2025 3:13 PM [facility] Blood, Urine Negative Negative LAB URINALYSIS - AUTOMATED METHOD 05/15/2025 3:13 PM [facility] Urine Urine specimen obtained by clean catch procedure / Unknown Non-blood Collection / Unknown 05/15/2025 2:53 PM EDT 05/15/2025 3:04 PM EDT us Stefanie CHAPMAN LAB URINE ORDERABLES Final Re sult Performing Organization Address [facility]/ZIP Co de Phone Number [facility] [address] [place] [address], [place] [phone] * Michelle urine culture tube (05/15/2025 2:53 PM EDT) [facility] Extra Tube Hold for add-ons. 05/15/2025 5:01 PM EDT [facility] Comment:Auto resulted. Urine Urine specimen obtained by clean catch procedure / Unknown Non-blood Collection / Unknown 05/15/2025 2:53 PM EDT 05/15/2025 3:04 PM EDT Stefanie CHAPMAN LAB URINE ORDERABLES Final Re sult Performing Organization Address [facility]/ZIP Co de Phone Number [facility] [address] [place] [address], [place] [phone] * (ABNORMAL) CBC auto differential (05/15/2025 2:47 PM EDT) [facility] WBC 6.5 4.8 - 10.8 K/mcL LAB HEMETOLOGY METHOD 05/15/2025 3:12 PM EDT [facility] RBC 4.90(H) 3.80 - 4.80 M/mcL LAB HEMETOLOGY METHOD 05/15/2025 3:12 PM EDT [facility] Hemoglobin 10.5(L) 11.5 - 16.0 g/dL LAB HEMETOLOGY METHOD 05/15/2025 3:12 PM EDT [facility] Hematocrit 35.7 35.0 - 47.0 % LAB HEMETOLOGY METHOD 05/15/2025 3:12 PM EDT [facility] MCV 72.9(L) 79.0 - 98.0 FL LAB HEMETOLOGY METHOD 05/15/2025 3:12 PM EDT [facility] MCH 21.4(L) 27.0 - 32.0 pcg LAB HEMETOLOGY METHOD 05/15/2025 3:12 PM EDT [facility] MCHC 29.4(L) 32.0 - 37.0 g/dL LAB HEMETOLOGY METHOD 05/15/2025 3:12 PM [facility] RDW 18.6(H) 11.0 - 15.0 % LAB HEMETOLOGY METHOD 05/15/2025 3:12 PM EDT [facility] Platelets 431(H) 130 - 400 K/mcL LAB HEMETOLOGY METHOD 05/15/2025 3:12 PM [facility] MPV 10.6 7.0 - 11.0 FL LAB HEMETOLOGY METHOD 05/15/2025 3:12 PM [facility] NRBC 0.0 <1.0 % LAB HEMETOLOGY METHOD 05/15/2025 3:12 PM [facility] NRBC Absolute 0.00 <0.10 K/mcL LAB HEMETOLOGY METHOD 05/15/2025 3:12 PM [facility] Neutrophils Relative 63.3 % LAB HEMETOLOGY METHOD 05/15/2025 3:12 PM [facility] Lymphocytes Relative 24.2 % LAB HEMETOLOGY METHOD 05/15/2025 3:12 PM [facility] Monocytes Relative 10.9 % LAB HEMETOLOGY METHOD 05/15/2025 3:12 PM [facility] Eosinophils Relative 1.1 % LAB HEMETOLOGY METHOD 05/15/2025 3:12 PM [facility] Basophils Relative 0.2 % LAB HEMETOLOGY METHOD 05/15/2025 3:12 PM [facility] Immature Granulocytes Relative 0.3 % LAB HEMETOLOGY METHOD 05/15/2025 3:12 PM EDT [facility] Neutrophils Absolute 4.09 1.50 - 7.00 K/mcL LAB HEMETOLOGY METHOD 05/15/2025 3:12 PM EDT [facility] Lymphocytes Absolute 1.56 1.00 - 5.00 K/mcL LAB HEMETOLOGY METHOD 05/15/2025 3:12 PM EDT [facility] Monocytes Absolute 0.70 0.20 - 1.00 K/mcL LAB HEMETOLOGY METHOD 05/15/2025 3:12 PM EDT [facility] Eosinophils Absolute 0.07 0.00 - 0.50 K/mcL LAB HEMETOLOGY METHOD 05/15/2025 3:12 PM EDT [facility] Basophils Absolute 0.01 0.00 - 0.20 K/mcL LAB HEMETOLOGY METHOD 05/15/2025 3:12 PM EDT [facility] Immature Granulocytes Absolute 0.02 0.00 - 0.03 K/mcL LAB HEMETOLOGY METHOD 05/15/2025 3:12 PM EDT [facility] Blood Venous blood specimen / Unknown Venipuncture / Unknown 05/15/2025 2:47 PM EDT 05/15/2025 3:04 PM EDT Stefanie CHAPMAN LAB BLOOD ORDERABLES Final Re sult [facility] [address] [place] [address], * Comprehensive metabolic panel (05/15/2025 2:47 PM EDT) Sodium 137 133 - 145 mmol/L LAB CHEMISTRY METHOD 05/15/2025 3:33 PM EDT [facility] Potassium 5.0 3.5 - 5.5 mmol/L LAB CHEMISTRY METHOD 05/15/2025 3:33 PM EDT [facility] Chloride 107 96 - 110 mmol/L LAB CHEMISTRY METHOD 05/15/2025 3:33 PM [facility] CO2 27 21 - 32 mmol/L LAB CHEMISTRY METHOD 05/15/2025 3:33 PM [facility] Anion Gap 3 3 - 11 LAB CHEMISTRY METHOD 05/15/2025 3:33 PM [facility] Glucose 90 70 - 100 mg/dL LAB CHEMISTRY METHOD 05/15/2025 3:33 PM [facility] BUN 14 5 - 25 mg/dL LAB CHEMISTRY METHOD 05/15/2025 3:33 PM [facility] Creatinine 0.68 0.50 - 1.10 mg/dL LAB CHEMISTRY METHOD 05/15/2025 3:33 PM [facility] eGFR 121 >=60 mL/min/1. 73m2 LAB CHEMISTRY METHOD 05/15/2025 3:33 PM [facility] Comment:Calculation based on the Chronic Kidney Disease Epidemiology Collaboration (CKD-EPI) equation refit without adjustment for race. BUN/Creatinine Ratio 20.6 LAB CHEMISTRY METHOD 05/15/2025 3:33 PM [facility] Calcium 9.0 8.5 - 10.5 mg/dL LAB CHEMISTRY METHOD 05/15/2025 3:33 PM [facility] AST (SGOT) 18 10 - 42 unit/L LAB CHEMISTRY METHOD 05/15/2025 3:33 PM [facility] ALT (SGPT) 26 10 - 60 unit/L LAB CHEMISTRY METHOD 05/15/2025 3:33 PM [facility] Alkaline Phosphatase 76 42 - 121 unit/L LAB CHEMISTRY METHOD 05/15/2025 3:33 PM [facility] Total Protein 7.1 6.0 - 8.0 g/dL LAB CHEMISTRY METHOD 05/15/2025 3:33 PM [facility] Albumin 3.4 3.2 - 5.0 g/dL LAB CHEMISTRY METHOD 05/15/2025 3:33 PM EDT [facility] Total Bilirubin 0.2 0.0 - 1.4 mg/dL LAB CHEMISTRY METHOD 05/15/2025 3:33 PM EDT [facility] Blood Venous blood specimen / Unknown Venipuncture / Unknown 05/15/2025 2:47 PM EDT 05/15/2025 3:04 PM EDT us Stefanie CHAPMAN LAB BLOOD ORDERABLES Final Re sult [facility] [address] [place] [address], from Last 3 Months [facility] Care Teams Silverware Supervisor Relationship Specialty Start Date End Date Keith Pa PA [address] [place] [address] PCP - General Physician Professional Wrestler 05/15/25
[2025-05-17 09:41] LABS: Hematocrit 35.3 % (37.0-47.0); Hemoglobin 10.9 g/dl (12.0-16.0); Mean Corpuscular HGB Conc 30.9 g/dl (31.0-35.0); Mean Corpuscular Hemoglobin 21.8 pg (27.0-33.0); Mean Corpuscular Volume 70.7 fL (80.0-98.0); NRBC Abs Auto 0.000 X10*3/uL (0.0-0.012); NRBC Pct Auto 0.0 /100WBC (0.0-0.2); Platelet Count 390 X10*3/uL (160-400); Red Blood Count 4.99 X10*6/uL (4.20-5.50); White Blood Count 6.4 X10*3/uL (4.8-10.8)
[2025-05-17 10:16] LABS: Alanine Aminotransferase 22 U/L (0-31); Albumin Level 4.2 g/dL (3.5-5.0); Alkaline Phosphatase 68 U/L (39-117); Anion Gap 10 (12-20); Aspartate Amino Transferase 21 U/L (5-31); Blood Urea Nitrogen 9 mg/dL (9-16); Calcium 8.8 mg/dL (8.4-10.2); Carbon Dioxide 28 mmol/L (22-29); Chloride 108 mmol/L (96-108); Estimated Glomerular Filt Rate > 60; Iron 50 mcg/dL (30-160); Percent Iron Saturation 11 % (15-50); Potassium 5.2 mmol/L (3.3-5.1); Sodium 141 mmol/L (135-145); Total Iron Binding Capacity 435 mcg/dL (228-428); Total Protein 7.5 g/dL (6.5-8.0); Unsaturated Iron Binding 385 ug/dL
== END 2025-05-17 09:01 | disposition home or self-care (01) ==
LOC: HO.LAB 09:00
PROVIDERS: PCP Physician Assistant; Visit Provider Physician Assistant
DX: Z13.1 Encounter for screening for diabetes mellitus (principal); M54.6 Pain in thoracic spine; D50.9 Iron deficiency anemia, unspecified; R10.9 Unspecified abdominal pain
CPT/HCPCS: 36415; 71046; 71100; 72072; 80053; 83540; 85027

== ENCOUNTER → 2025-05-17 09:21 | Outpatient (BNV) | payer BC, SELFPAY | PROVIDERS: PCP Physician Assistant; Visit Provider Radiology Diagnostic Radiology | DX: R10.9 Unspecified abdominal pain (principal); M54.6 Pain in thoracic spine | CPT/HCPCS: 71046; 71100; 72072 ==